=== PATIENT | female | born 1970 | race Hispanic/Latino ===

== ENCOUNTER 2024-04-25 13:14 | Outpatient (CLI) | payer OTHER | END 2024-04-25 13:15 | disposition home or self-care (01) | LOC: BICMAMMO 13:14 | PROVIDERS: ATTEND Family Medicine | DX: Z12.31 Encounter for screening mammogram for malignant neoplasm of breast (principal) | CPT/HCPCS: 77063; 77067 ==

== ENCOUNTER 2025-08-12 13:08 | Outpatient (CLI) | payer OTHER | END 2025-08-12 13:09 | disposition home or self-care (01) | LOC: SCSMRI 13:08 | PROVIDERS: ATTEND Orthopaedic Surgery | DX: S82.202D Unspecified fracture of shaft of left tibia, subsequent encounter for closed fracture with routine healing (principal) ==